=== PATIENT | male | born 1965 | race Caucasian/White ===

== ENCOUNTER 2020-12-20 14:19 | Outpatient (RCR) | payer MEDICAID, SELFPAY ==
[2020-12-20] MEDS: COVID-19 VACC, MRNA(PFIZER)/PF 30 MCG/0.3 ML SYRINGE IM (13:39)
[2021-01-10] MEDS: COVID-19 VACC, MRNA(PFIZER)/PF 30 MCG/0.3 ML SYRINGE IM (13:21)
== END 2021-03-14 23:59 ==
LOC: IMMUN 14:19
PROVIDERS: Visit Provider Family Medicine
DX: Z23 Encounter for immunization (principal)
CPT/HCPCS: 0001A; 0002A; 91300